=== PATIENT | male | born 1995 ===

== ENCOUNTER 2018-02-12 09:32 | Emergency (ER) | payer MEDICAID ==
[2018-02-12 09:42] VITALS: BMI 39.5
[2018-02-12 10:19] LABS: BASO % 0.4 % (0.0-2.0); EOS % 0.3 % (0.0-4.0); HEMOGLOBIN 16.4 g/dL (12.0-18.0); LYMPH # 1.3 K/uL (1.0-4.3); LYMPH % 20.2 % (20.0-40.0); MEAN CELL VOLUME 86.4 fL (80.0-94.0); MEAN CORPUSCULAR HEMOGLOBIN 30.1 pg (27.0-31.0); MEAN CORPUSCULAR HGB CONC 34.8 g/dL (33.0-37.0); MEAN PLATELET VOLUME 8.7 fL (7.2-11.7); MONO # 0.8 K/uL (0.0-0.8); MONO % 11.4 % (0.0-10.0); NEUT # 4.5 K/uL (1.8-7.0); NEUT % 67.7 % (50.0-75.0); NRBC % 0.2 % (0.0-2.0); RBC 5.45 Mil/uL (4.40-5.90); RED CELL DISTRIBUTION WIDTH 13.5 % (11.5-14.5); WHITE BLOOD COUNT 6.6 K/uL (4.8-10.8)
[2018-02-12 10:32] LABS: ALB/GLOB RATIO 1.4 (1.0-2.1); ALBUMIN 4.6 g/dL (3.5-5.0); CALCIUM 9.3 mg/dl (8.6-10.4); GFR AFRICAN-AMERICAN > 60; GFR NON-AFRICAN AMERICAN > 60
[2018-02-12 10:38] LABS: ALT/SGPT 30 U/L (21-72); AST/SGOT 31 U/L (17-59); BLOOD UREA NITROGEN 17 mg/dL (9-20)
[2018-02-12] MEDS ORDERED: Iodixanol 320 MG/ML 200 ML BOTTLE IV ONE (10:40)
--- NOTE | 2018-02-12 12:02 | CT ---
PROCEDURE: CT scan maxillofacial skeleton/orbits. HISTORY: Swelling and tenderness under angle of left jaw COMPARISON: No prior study available comparison TECHNIQUE: Following administration of intravenous iodinated contrast, axial CT images of the orbits were obtained. Coronal and sagittal reformats were generated. Intravenous contrast dose: 100 cc Visipaque 320 Radiation dose: Total exam DLP = 866.94 mGy-cm. This CT exam was performed using one or more of the following dose reduction techniques: Automated exposure control, adjustment of the mA and/or kV according to patient size, and/or use of iterative reconstruction technique. . FINDINGS: The current study reveals mild enlargement of left parotid gland with the the infiltration of the parenchyma. There is overlying thickening and infiltration of the platysma and what appears represent small amount of fluid along the inferolateral border of the left parotid gland subjacent to the platysma. Findings are consistent with inflammatory process of the left parotid gland/proctitis. . No evidence of parotid gland calcifications/calculi seen. . No evidence of calculus seen within distribution of parotid duct (Stensen's duct). Probable mild enlargement of a left posterior superior parietal and lymph node measures approximately 8.9 mm likely reactive. There may also be 1 or 2 tiny right posterior superior parotid gland lymph nodes on however the remaining major salivary glands unremarkable. Orbits and contents are normal. Globes intact and lenses appropriately located. There are no retrobulbar masses or collections. Optic nerves and extraocular musculature unremarkable. The visualized paranasal sinuses are well-developed. No fluid levels seen to suggest acute sinusitis or hemorrhage. Minor mucosal thickening seen both maxillary antra with minimal mucosal thickening few ethmoid air cells. Mastoid air complexes well-developed and currently well-aerated. Note made mildly prominent adenoids. IMPRESSION: Findings consistent with left parotid gland inflammation/parotiditis. No evidence of parotid gland calculi or calculi seen within the distribution of Stensen's duct. There are infiltration changes in the adjacent subcutaneous tissues with small amount of fluid along the inferior margin of the parotid gland just a subjacent to the thickened appearing platysma.
[2018-02-12 12:31] VITALS: BP 134/79; PULSE 78; RESP 18; TEMP 100.7; O2SAT 97
--- NOTE | 2018-02-12 13:59 | C.PDOC ---
History Of Present Illness 23 year old male presents to the emergency department with complaints of swelling to the left side of the jaw for the past few days. He denies trauma, foul taste in mouth, pain with opening his mouth, ear pain, and fever. Chief Complaint (Nursing): Abnormal Skin Integrity History Per: Patient History/Exam Limitations: no limitations Onset/Duration Of Symptoms: Days Current Symptoms Are (Timing): Still Present Location Of Injury: Left: Face Quality Of Symptoms: Swollen Past Medical History Reviewed: Historical Data, Nursing Documentation, Vital Signs Vital Signs: Last Vital Signs Temp 100.7 F H 02/12/18 12:25 Pulse 78 02/12/18 12:25 Resp 18 02/12/18 12:25 BP 134/79 02/12/18 12:25 Pulse Ox 97 02/12/18 14:09 - Medical History PMH: Asthma (Childhood) Surgical History: No Surg Hx Family History: States: No Known Family Hx - Social History Hx Alcohol Use: Yes Hx Substance Use: No - Immunization History Hx Tetanus Toxoid Vaccination: No Hx Influenza Vaccination: No Hx Pneumococcal Vaccination: No Review Of Systems Except As Marked, All Systems Reviewed And Found Negative. Constitutional: Negative for: Fever ENT: Negative for: Ear Pain, Mouth Pain Physical Exam - Physical Exam Appears: Non-toxic, No Acute Distress Skin: Warm, Dry Head: Atraumatic, Normacephalic Eye(s): bilateral: Normal Inspection Nose: Normal Oral Mucosa: Moist Tongue: Normal Appearing Gingiva: Swelling (left parotid gland), Tender (left parotid gland) Throat: Normal, No Erythema, No Exudate Neck: Normal, Supple Chest: Symmetrical Cardiovascular: Rhythm Regular Respiratory: Normal Breath Sounds, No Rales, No Rhonchi, No Wheezing Neurological/Psych: Oriented x3, Normal Speech, Normal Cognition ED Course And Treatment - Laboratory Results Result Diagrams: 02/12/18 10:10 02/12/18 10:10 O2 Sat by Pulse Oximetry: 97 (RA) Pulse Ox Interpretation: Normal - CT Scan/US CT Orbits/Facials Other Rad Studies (CT/US): Read By Radiologist, Radiology Report Reviewed CT/US Interpretation: IMPRESSION: Findings consistent with left parotid gland inflammation/parotiditis. No evidence of parotid gland calculi or calculi seen within the distribution of Stensen's duct. There are infiltration changes in the adjacent subcutaneous tissues with small amount of fluid along the inferior margin of the parotid gland just a subjacent to the thickened appearing platysma. Progress Note: Plan: CT Orbits/Facials with Contrast. CMP. CBC. Cleocin 300mg PO. Motrin 600mg PO. CT completed, antiobiotics will be started. Patient encouraged to use lemon drops/lemon candy. He will follow up with his PMD. Disposition - Disposition Referrals: [facility], [Non-Staff] - Disposition: HOME/ ROUTINE Disposition Time: 12:00 Condition: GOOD Additional Instructions: ALMA العراقي, thank you for letting us take care of you today. Your provider was Tony Yee DO and you were treated for JAW PAIN. The emergency medical care you received today was directed at your acute symptoms. If you were prescribed any medication, please fill it and take as directed. It may take several days for your symptoms to resolve. Return to the Emergency Department if your symptoms worsen, do not improve, or if you have any other problems. Please contact your doctor or call one of the physicians/clinics you have been referred to that are listed on the Patient Visit Information form that is included in your discharge packet. Bring any paperwork you were given at discharge with you along with any medications you are taking to your follow up visit. Our treatment cannot replace ongoing medical care by a primary care provider outside of the emergency department. Thank you for allowing the [facility] team to be part of your care today. Use lemon drops to help with the swelling. Follow up with your primary care doctor for re-evaluation and further management. Prescriptions: Clindamycin [Cleocin] 300 mg PO Q6 #28 cap Instructions: Parotitis Forms: [facility] (C[employer]) - Clinical Impression Clinical Impression: Parotitis - Scribe Statement The provider has reviewed the documentation as recorded by the Scribe (Cristofer Tateqvi) Provider Attestation: All medical record entries made by the Scribe were at my direction and personally dictated by me. I have reviewed the chart and agree that the record accurately reflects my personal performance of the history, physical exam, medical decision making, and the department course for this patient. I have also personally directed, reviewed, and agree with the discharge instructions and disposition.
== END 2018-02-12 12:38 | disposition home or self-care (01) ==
LOC: C.ER 09:32
DX: K11.20 Sialoadenitis, unspecified (principal)
CPT/HCPCS: 70481; 80053; 85025; 99284; Q9966